=== PATIENT | male | born 1970 | race Caucasian/White ===

== ENCOUNTER 2024-10-17 05:19 | Emergency (ER) | payer MEDICAID, SELFPAY ==
[2024-10-17 05:21] VITALS: BP 137/81; PULSE 68; RESP 17; TEMP 37.1; O2SAT 100
--- NOTE | 2024-10-17 05:35 | PC.NURSE ---
Pt on EMS stretcher in ambulance bay [facility] when pt began to sieze - MD notified, pt quickly moved to room 19 and care assumed.
[2024-10-17] MEDS: LORazepam 2 MG/ML VIAL IVP (05:38)
--- NOTE | 2024-10-17 05:38 | PD.EDRME ---
Rapid Medical Screening Exam [facility] Arrival date/time: 10/17/24 05:19 Vital signs: Vital Signs Temperature 98.7 F 10/17/24 05:21 Pulse Rate 68 10/17/24 05:21 Respiratory Rate 17 10/17/24 05:21 Blood Pressure 137/81 H 10/17/24 05:21 Pulse Oximetry (%) 100 10/17/24 05:21 Oxygen Delivery Method Room Air 10/17/24 05:21 [facility] Narrative: 54yo male BIBA from home presents to the ED for a chief complaint of a seizure. Per EMS, patient's woke up to the patient seizing. EMS denies any vomiting. Patient began seizing here in the ED, was placed in a room, and was seen by me. EMS denies any history of seizures. EMS denies any recent illnesses at home. No known allergies.
[2024-10-17 05:40] VITALS: PULSE 82; O2SAT 99
[2024-10-17 05:44] VITALS: BMI 30.4
--- NOTE | 2024-10-17 05:52 | PC.NURSE ---
Padding placed against both side rails of bed for seizure precautions. Suction set up and turned on.
[2024-10-17 05:55] VITALS: BP 129/76; PULSE 71; RESP 23; O2SAT 97
[2024-10-17 06:02] LABS: Lactate (Lactic Acid) 13.1 mMol/L (0.4-2.0)
[2024-10-17 06:03] LABS: Basophils % (Auto) 0 % (0-2.5); Eosinophils # (Auto) 0.1 Thou/mm3 (0.0-0.5); Eosinophils % (Auto) 1 % (0-10); Hematocrit 44.5 % (41.0-53.0); Hemoglobin 14.9 g/dL (13.5-16.0); Immature Granulocytes % (Auto) 3 % (0-0); Immature Granulocytes Auto 0.22 Thou/mm3 (0.00-0.00); Lymphocytes # (Auto) 4.7 Thou/mm3 (1.0-4.8); Lymphocytes % (Auto) 56 % (10-50); Mean Corpuscular HGB Conc 33.5 g/dl (31.0-37.0); Mean Corpuscular Hemoglobin 29.9 pg (25.0-35.0); Mean Corpuscular Volume 89 fL (80-100); Monocytes # (Auto) 0.9 Thou/mm3 (0.0-0.8); Monocytes % (Auto) 11 % (0-12); Neutrophils # (Auto) 2.4 Thou/mm3 (1.8-7.7); Neutrophils % (Auto) 29 % (37-80); Nucleated Red Blood Cell % 0 /100 WBC (0); Platelet Count 315 Thou/mm3 (140-440); RDW Standard Deviation 44.4 fL (35.1-43.9); Red Blood Count 4.98 Miln/mm3 (4.50-5.90); White Blood Count 8.4 Thou/mm3 (3.8-10.6)
--- NOTE | 2024-10-17 06:03 | PD.EDSEIZ ---
ED Seizures RME/HPI General Chief Complaint: Seizure Stated Complaint: SEIZURE Time Seen by Provider: 10/17/24 06:01 Arrival date/time: 10/17/24 05:19 Limitations: no limitations RME / HPI RME / HPI Narrative: 54yo male VINCENT from home presents to the ED for a chief complaint of a seizure. Per EMS, patient's woke up to the patient seizing. EMS denies any vomiting. Patient began seizing here in the ED, was placed in a room, and was seen by me. EMS denies any history of seizures. EMS denies any recent illnesses at home. No known allergies. Obtained additional history from the . States she witnessed the seizure which she described as full body, lasting 3-4 minutes. States during that time patient bit his tongue. Shortly after waking patient was confused. denies any history of seizures. Related Data Previous Rx's ?Medication ?Instructions ?Recorded levetiracetam 1,000 mg tablet 1,000 mg PO BID #60 tabs 10/17/24 (Keppra) Allergies Allergy/AdvReac Type Severity Reaction Status Date / Time NKA* Allergy Uncoded 07/05/17 11:28 Review of Systems Review of Systems Systems Reviewed: All systems reviewed, normal except as documented Past Medical History Past Medical History CARDIAC: Negative Congestive Heart Failure RESPIRATORY: Negative Chronic Obstructive Pulmonary Disease (COPD) GENITOURINARY: Negative Renal Disease ENDOCRINE: Negative Diabetes Mellitus Type 1 or Diabetes Mellitus Type 2 Social History SMOKING STATUS: Unknown if ever smoked ED Exam General Limitations: Present no limitations General appearance: Present alert and in no apparent distress Head Head exam: Present atraumatic, normocephalic and normal inspection Eye Eye exam: Present normal appearance, PERRL and EOMI ENT ENT exam: Present normal oropharynx and mucous membranes moist Neck Neck exam: Present normal inspection, full ROM and trachea midline Chest Chest inspection: Present normal inspection and symmetric chest wall rise Respiratory Respiratory exam: Present normal lung sounds bilaterally Cardiovascular Cardiovascular exam: Present regular rate, normal rhythm and normal heart sounds Abdominal Exam Abdominal exam: Present soft and normal bowel sounds Extremities Exam Extremities exam: Present normal inspection and full ROM Back Exam Back exam: Present normal inspection and full ROM Neurological Exam Neurological exam: Present alert, oriented X3 and CN II-XII intact Psychiatric Psychiatric exam: Present normal affect and normal mood Skin Skin exam: Present warm, dry, intact and normal color Course Quality Measures none Orders Category Date Time Status EKG (ED ONLY) *Do not use* NOW Care 10/17/24 05:42 Completed In and Out Catheter X1 Care 10/17/24 05:46 Completed Insert IV NOW Care 10/17/24 05:[address] head/brain wo con Stat Exams 10/17/24 07:05 Completed EKG (ED Only) Stat Exams 10/17/24 05:42 Ordered Blood Culture (Lab) Stat Lab 10/17/24 06:12 Received CBC Stat Lab 10/17/24 05:40 Completed CMP [Comprehensive Metabolic Panel] Stat Lab 10/17/24 05:40 Completed Drug Screen,Urine Stat Lab 10/17/24 05:50 Completed Lactate (Lactic Acid) Stat Lab 10/17/24 05:40 Completed Lactic Acid, 3 HR Stat Lab 10/17/24 08:51 Ordered Procalcitonin Stat Lab 10/17/24 05:40 Completed UA [Urinalysis] Stat Lab 10/17/24 05:50 Completed LORazepam [Ativan Inj] Med 10/17/24 05:32 Discontinued 2 mg .ROUTE .STK-MED ONE LORazepam [Ativan Inj] Med 10/17/24 05:35 Discontinued 2 mg IVP X1 ONE levETIRAcetam INJ [Keppra Inj] Med 10/17/24 08:25 Discontinued 1,000 mg IVP X1 ONE Vital Signs Vital signs: Vital Signs Temperature 98.7 F 10/17/24 05:21 Pulse Rate 68 10/17/24 05:21 Respiratory Rate 17 10/17/24 05:21 Blood Pressure 137/81 H 10/17/24 05:21 Pulse Oximetry (%) 100 10/17/24 05:21 Oxygen Delivery Method Room Air 10/17/24 05:21 Pulse ox is 100% on room air which is adequate. Seizure MDM Narrative MDM Narrative:: ISherrie am scribing for and in the presence of Dr. Christensen. A DMV report was filled and patient was made aware he should not drive until cleared by a neurologist. Patient data External records reviewed:: EMS form Clinical information provided by:: patient, EMS and spouse (- adds to hpi) Social determinants that could affect healthcare access:: none Patient has the following chronic illnesses:: None reported How is presenting disease/condition affected by chronic disease/condition?: no chronic disease Evaluation data The following diagnostics were reviewed and interpreted by me:: lab results (Lactic acid level elevation is metabolic secondary to seizure, otherwise labs are unremarkable. ) and radiology exam(s) Lab and/or radiology exams considered but not ordered:: None Interpretation Summary: Ordering Physician: Jimmy Christensen MD Date of Service: 10/17/24 Procedure(s): CT head/brain wo con Accession Number(s): [id number] cc: Jimmy Christensen MD; Sage Mathis MD; NO PRIMARY/FAMILY,PHYSICIAN~ Examination: CT brain head without contrast. 2-D sagittal coronal reconstructions Date and time of exam:October 17, 2024 0716 hrs. Indications: New onset seizures this morning CTDI: vol (mGy):56.1 DLP: (mGycm):1131 Technique: Multiple CT axial sections of the brain have been obtained, 5 mm slice thickness. Contrast has not been administered. 2-D sagittal, coronal reconstructions have been obtained Low dose protocols were performed. One or more of the following dose reduction techniques were used; automated exposure control, adjustment of the mA and/or KV according to patient size, use of iterative reconstruction technique. Findings: No significant ventricular enlargement. Intra-axial or extra-axial hemorrhage density is not seen. No mass effect or midline shift Basal cisterns are not remarkable. Fourth ventricle is midline. Cranial vault intact. Impression: Negative for acute hemorrhage, mass effect or midline shift Consider brain MRI follow-up, pre and postcontrast, seizure protocol Dictated By: Sage Mathis MD Signed By: <Electronically signed by Sage Mathis MD in OV> 10/17/24 0753 Medications / Prescriptions Medications or Prescriptions considered but not ordered:: None Medication administrations:: Medication Administration History Discontinued Medications Levetiracetam (Levetiracetam Inj 100 Mg/Ml Vial 5ml) 1,000 mg IVP X1 ONE Stop: 10/17/24 08:26 Lorazepam (Lorazepam 2 Mg/Ml Vial) Confirm Administered Dose 2 mg .ROUTE .STK-MED ONE Stop: 10/17/24 05:33 Last Admin: 10/17/24 05:43 Dose: Not Given Documented By: DB Non-Admin Reason: Duplicate Medication on eMAR Lorazepam (Lorazepam 2 Mg/Ml Vial) 2 mg IVP X1 ONE Stop: 10/17/24 05:36 Last Admin: 10/17/24 05:38 Dose: 2 mg Documented By: DB See above Consultations Consultation(s) initiated? (list below): No Diagnosis Seizure Differential Diagnosis: febrile convulsion, generalized seizure, new onset seizure and epileptic seizure Most likely diagnosis given after review of the tests above:: Seizure Admission Indicated Admission indicated?: not indicated Admission Request Was there a request for admission?: No Disposition Plan Disposition Plan: Discharge Discharge Attestation Discharge Attestation: The patient and all family members were given an opportunity to ask questions and understood the discharge instructions. Discharge instructions specifically effects, indications for sooner follow up or return to the emergency department, and the expected course of current diagnosis. Patient condition: Stable Discharge Plan Plan Patient Disposition: HOME (Self Care) Patient condition on transfer: Stable Prescriptions/Referrals Prescriptions/Med Rec: New levetiracetam [Keppra] 1,000 mg tablet 1,000 mg PO BID Qty: 60 0RF Referrals: No Primary/Family,Physician [Primary Care Provider] - In 1 week Problem List Clinical Impression: Seizure Patient/Caregiver Discharge Instructions Print Language: Montserratian Stand Alone Forms: [employer] Award Info., Patient Portal Info Letter
[2024-10-17 06:12] LABS: Collection Type, Urine Catheter; Squamous Epithelial Cell,Urine 0 /hpf (0-5)
[2024-10-17 06:15] LABS: Bilirubin,Urine Negative (Negative); Blood,Urine Negative (Negative); Clarity,Urine Clear (Clear/Hazy); Color,Urine Lt-Yellow (Lt Yel-Yel); Glucose, Urine Negative (Negative); Ketones,Urine Negative (Negative); Leukocyte Esterase,Urine Negative (Negative); Nitrite,Urine Negative (Negative); Protein,Urine Negative (Neg - Trace); RBC,Urine < 1 /hpf (0-3); Specific Gravity,Urine 1.013 (1.001-1.035); Urobilinogen,Urine Negative mg/dL (0.0-1.0); WBC,Urine < 1 /hpf (0-5)
--- NOTE | 2024-10-17 06:25 | PC.NURSE ---
Pt's at the bedside at this time; update on plan of care given.
[2024-10-17 06:40] LABS: Fentanyl Screen,Urine Negative (Negative)
[2024-10-17 06:44] LABS: Amphetamine/Methamp Scrn,U Negative (Negative); Barbiturate Screen,Urine Negative (Negative); Benzodiazepines Screen,Urine Negative (Negative); Benzoylecgonine Screen, Ur Negative (Negative); Opiate Screen,Urine Negative (Negative); THC Screen,Urine Negative (Negative)
[2024-10-17 06:44] LABS: Alanine Aminotransferase 35 U/L (10-49); Albumin, Serum 4.5 gm/dL (3.5-5.0); Alkaline Phosphatase 101 U/L (46-116); Anion Gap 17 (7-16); Aspartate Amino Transferase 35 U/L (0-34); BUN/Creatinine Ratio 19 Ratio (12-20); Bilirubin,Total 0.5 mg/dL (0.3-1.2); Blood Urea Nitrogen 15 mg/dL (9-23); Calcium 10.3 mg/dL (8.3-10.6); Calcium (Corrected) 10.3 mg/dL (8.5-10.1); Carbon Dioxide 17.5 mMol/L (20.0-31.0); Chloride 109 mMol/L (98-107); Creatinine (Component) 0.8 mg/dL (0.6-1.3); Estimated Creatinine Clearance 115.5 mL/min (>60); Globulin 2.3 gm/dL (2.3-3.5); Glucose 157 mg/dL (74-106); Osmolality,Calculated 288 (275-295); Potassium 4.4 mMol/L (3.4-5.1); Procalcitonin 0.06 ng/ml (0.0-0.49); Sodium 143 mMol/L (136-145); Total Protein 6.8 gm/dL (5.7-8.2); eGFR > 60 See Note
[2024-10-17 06:46] VITALS: BP 108/77; PULSE 74; RESP 19; O2SAT 97
--- NOTE | 2024-10-17 07:05 | XR_ITS ---
Examination: CT brain head without contrast. 2-D sagittal coronal reconstructions Date and time of exam:October 17, 2024 0716 hrs. Indications: New onset seizures this morning CTDI: vol (mGy):56.1 DLP: (mGycm):1131 Technique: Multiple CT axial sections of the brain have been obtained, 5 mm slice thickness. Contrast has not been administered. 2-D sagittal, coronal reconstructions have been obtained Low dose protocols were performed. One or more of the following dose reduction techniques were used; automated exposure control, adjustment of the mA and/or KV according to patient size, use of iterative reconstruction technique. Findings: No significant ventricular enlargement. Intra-axial or extra-axial hemorrhage density is not seen. No mass effect or midline shift Basal cisterns are not remarkable. Fourth ventricle is midline. Cranial vault intact. Impression: Negative for acute hemorrhage, mass effect or midline shift Consider brain MRI follow-up, pre and postcontrast, seizure protocol
[2024-10-17 07:48] VITALS: BP 107/61; PULSE 67; RESP 19; TEMP 36.6; O2SAT 100
[2024-10-17 08:26] VITALS: BP 116/72; PULSE 69; RESP 16; TEMP 37; O2SAT 98
[2024-10-17 08:51] LABS: Reflex Lactate? Y
== END 2024-10-17 08:26 | disposition home or self-care (01) ==
PROVIDERS: Emergency Medicine; Emergency Provider Emergency Medicine
DX: R56.9 Unspecified convulsions (principal)
CPT/HCPCS: 51701; 36415; 70450; 80053; 80307; 81001; 83605; 84145; 85025; 87040; 93005; 96374; 99284; J2060

== ENCOUNTER 2024-11-30 09:18 | Emergency (ER) | payer MEDICAID, SELFPAY ==
[2024-11-30 09:26] VITALS: BP 128/86; PULSE 74; PULSE 77; RESP 18; TEMP 36.5; O2SAT 97
[2024-11-30 09:32] VITALS: BMI 27.3
--- NOTE | 2024-11-30 09:48 | PC.NURSE ---
Pt have a 1 min [place] Seizures, Dr. Queen at bedside, new orders given to this nurse
--- NOTE | 2024-11-30 09:49 | PD.EDSEIZ ---
ED Seizures RME/HPI General Chief Complaint: Seizure Stated Complaint: seizure Time Seen by Provider: 11/30/24 09:56 Arrival date/time: 11/30/24 09:18 RME / HPI RME / HPI Narrative: DR. MOREL MAIN ED EVALUATION: 54 year old male with past medical history significant for seizure in past, alcoholism, presents to the Emergency Department [facility] with complaint of seizure prior to arrival. Symptoms are moderate. Patient did bite his tongue. Related Data Previous Rx's ?Medication ?Instructions ?Recorded levetiracetam 1,000 mg tablet 1,000 mg PO BID #60 tabs 10/17/24 (Keppra) Allergies Allergy/AdvReac Type Severity Reaction Status Date / Time No Known Allergies Allergy Verified 11/30/24 10:43 Review of Systems Review of Systems ROS Unobtainable: unobtainable due to mental status (postictal) Past Medical History Past Medical History CARDIAC: Negative Congestive Heart Failure RESPIRATORY: Negative Chronic Obstructive Pulmonary Disease (COPD) GENITOURINARY: Negative Renal Disease ENDOCRINE: Negative Diabetes Mellitus Type 1 or Diabetes Mellitus Type 2 Social History SMOKING STATUS: Unknown if ever smoked ED Exam Narrative Physical exam: GENERAL APPEARANCE: Well hydrated, well nourished. Earlier, at arrival, patient was actively seizing and there was blood in the mouth after biting his tongue. After Ativan, patient stopped seizing and now sleeping and snoring. No history obtainable from the patient at this time, patient is postictal. VITALS: All vitals were reviewed and the pulse ox is 97% on room air which is normal according to my interpretation. HEENT: Normocephalic, atramatic, EOMI, EACs are patent. There is no bulge or retraction. Throat without erythema or exudate. Moist oromucosa. No jaundice NECK: Supple, no JVD or bruits. CARDIOVASCULAR: Heart regular without S3-S4 or murmur. No rubs or gallops. LUNGS/CHEST: Clear to auscultation bilaterally. No rales, rhonchi, or wheezing. Normal inspection. ABDOMEN: Soft, nontender, with normal bowel sounds. No pulsatile masses. No rebound, rigidity, or guarding. No incarcerated hernia. Normal inspection and palpation. EXTREMITIES: No edema, clubbing, or cyanosis. Intact CSM. Normal inspection and palpation. SKIN: Warm and dry without rashes. Normal inspection. MUSCULOSKELETAL: No gross deformity. Normal inspection. NEURO: Unobtainable, postictal. PSYCHIATRIC: Unobtainable Course Quality Measures none Orders Category Date Time Status Insert IV NOW Care 11/30/24 09:[address] head/brain wo con Stat Exams 11/30/24 13:42 Completed Alcohol, Blood Medical Stat Lab 11/30/24 10:05 Completed BMP [Basic Metabolic Panel] Stat Lab 11/30/24 13:47 Completed CBC Stat Lab 11/30/24 10:05 Completed Comprehensive Metabolic Panel Stat Lab 11/30/24 10:05 Completed Drug Screen,Urine Stat Lab 11/30/24 12:54 Completed LORazepam [Ativan Inj] Med 11/30/24 09:43 Discontinued 2 mg .ROUTE .STK-MED ONE LORazepam [Ativan Inj] Med 11/30/24 09:49 Discontinued 2 mg IVP X1 ONE Multivitamin Inj [Infuvite Inj] 10 ml Med 11/30/24 10:45 Discontinued Magnesium Sulf 50% Inj (gm) 1 gm Folic Acid Inj 1 mg Thiamine Inj [Vitamin B-1 Inj] 100 mg Sodium Chloride 0.9% 1000 ml [Ns] 1,000 ml IV X1 levETIRAcetam INJ [Keppra Inj] Med 11/30/24 09:49 Discontinued 1,000 mg IVP X1 ONE Vital Signs Vital signs: Vital Signs Temperature 97.7 F 11/30/24 09:26 Pulse Rate 77 11/30/24 09:26 Respiratory Rate 18 11/30/24 09:26 Blood Pressure 128/86 H 11/30/24 09:26 Pulse Oximetry (%) 97 11/30/24 09:26 Oxygen Delivery Method Room Air 11/30/24 09:26 Seizure MDM Narrative MDM Narrative:: I, Adina Jarrell, am scribing for and in the presence of Dr. Morel. CBC is negative. CMP noticeable for a bicarb of 13. This is shortly after patient arrival and when he was having the seizure. U tox is negative. Alcohol is negative. In the emergency department the patient was given 1 g of Keppra IV. He was also given IV fluid bolus. He was also giving a liter of banana bag. Repeated BMP is perfectly normal. CT brain was reviewed by and interpreted by me: No bleed. No mass. No shift. No swelling. Normal ventricle. Normal bones. 2:50 PM, the patient is alert awake oriented x 4 GCS of 15. His family members are here to pick him up. The patient is eager to walk out. Critical care time is approximately 35 minutes excluding any procedure. The high probability of sudden, clinically significant deterioration in the patient?s condition required the highest level of my preparedness to intervene urgently. The services I provided to this patient were to treat and/or prevent clinically significant deterioration. Services included the following: chart data review, reviewing nursing notes and/or old charts, documentation time, sr. consultant collaboration regarding findings and treatment options, medication orders and management, direct patient care, vital sign assessments and ordering, interpreting and reviewing diagnostic studies and lab tests. Aggregate critical care time includes only time during which I was engaged in work directly related to the patient?s care, as described above, whether at bedside or elsewhere in the Emergency Department. It did not include time spent performing other reported procedures or the services of residents, students, nurses or physician assistants. Patient data External records reviewed:: [facility] previous records (Reviewed last ED visit dated 10/17/24, discharged with the following: Seizure.) and EMS form Clinical information provided by:: EMS Social determinants that could affect healthcare access:: none Patient has the following chronic illnesses:: Seizures How is presenting disease/condition affected by chronic disease/condition?: caused by Evaluation data The following diagnostics were reviewed and interpreted by me:: lab results and radiology exam(s) Lab and/or radiology exams considered but not ordered:: none Interpretation Summary: See above under MDM narrative. RADIOLOGY Procedure(s): CT head/brain wo con Accession Number(s): [id number] cc: Sage Mathis MD; Mauro Morel MD; Rosalba Cagle PA-C~ Examination: CT brain head without contrast. 2-D sagittal coronal reconstructions Date and time of exam:November 30, 2024 1414 hrs. Indications: Seizures today CTDI: vol (mGy):61.6 DLP: (mGycm):1336 Technique: Multiple CT axial sections of the brain have been obtained, 5 mm slice thickness. Contrast has not been administered. 2-D sagittal, coronal reconstructions have been obtained Low dose protocols were performed. One or more of the following dose reduction techniques were used; automated exposure control, adjustment of the mA and/or KV according to patient size, use of iterative reconstruction technique. Findings: No significant ventricular enlargement. Intra-axial or extra-axial hemorrhage density is not seen. No mass effect or midline shift Basal cisterns are not remarkable. Fourth ventricle is midline. Cranial vault intact. Impression: Negative for acute hemorrhage, mass effect or midline shift Advise clinical correlation and follow-up accordingly Dictated By: Sage Mathis MD Medications / Prescriptions Medications or Prescriptions considered but not ordered:: none Medication administrations:: Medication Administration History Discontinued Medications Multivitamins/Minerals 10 ml/Magnesium Sulfate 1 gm/ Folic Acid 1 mg/ Thiamine HCl 100 mg / Sodium Chloride 1,013.2 mls @ 999 mls/hr IV X1 ONE Stop: 11/30/24 11:45 Last Infusion: 11/30/24 12:30 Dose: Infused Documented By: Admin: 11/30/24 11:08 Dose: 999 mls/hr Documented By: AKI Levetiracetam (Levetiracetam Inj 100 Mg/Ml Vial 5ml) 1,000 mg IVP X1 ONE Stop: 11/30/24 09:50 Last Admin: 11/30/24 09:54 Dose: 1,000 mg Documented By: AKI Lorazepam (Lorazepam 2 Mg/Ml Vial) Confirm Administered Dose 2 mg .ROUTE .STK-MED ONE Stop: 11/30/24 09:44 Last Admin: 11/30/24 09:50 Dose: Not Given Documented By: AKI Non-Admin Reason: Duplicate Medication on eMAR Lorazepam (Lorazepam 2 Mg/Ml Vial) 2 mg IVP X1 ONE Stop: 11/30/24 09:50 Last Admin: 11/30/24 09:50 Dose: 2 mg Documented By: AKI see above Consultations Consultation(s) initiated? (list below): No Diagnosis Seizure Differential Diagnosis: generalized seizure, epileptic seizure and other (Alcohol-related seizure) Most likely diagnosis given after review of the tests above:: Recurrent seizure Admission Indicated Admission indicated?: not indicated Admission Request Was there a request for admission?: No Disposition Plan Disposition Plan: Discharge Discharge Attestation Discharge Attestation: The patient and all family members were given an opportunity to ask questions and understood the discharge instructions. Discharge instructions specifically effects, indications for sooner follow up or return to the emergency department, and the expected course of current diagnosis. Patient condition: Stable Discharge Plan Plan Patient Disposition: HOME (Self Care) Disposition Comment: Stable to go home Prescriptions/Referrals Prescriptions/Med Rec: No Action levetiracetam [Keppra] 1,000 mg tablet 1,000 mg PO BID Qty: 60 0RF Referrals: Rosalba Cagle PA-C [Primary Care Provider] - In 1 week Problem List Clinical Impression: Generalized seizure Patient/Caregiver Discharge Instructions Education Materials: ED Seizure, Recurrent (Adult) Additional Instructions: Continue your seizure medication. Caution do not drive. Do not dive. Do not do angela. Follow-up with your medical doctor in 3 days. Return the emergency department if any problem. Print Language: Lithuanian Stand Alone Forms: [employer] Award Info., Patient Portal Info Letter
[2024-11-30] MEDS: LORazepam 2 MG/ML VIAL IVP (09:50)
[2024-11-30] MEDS: levETIRAcetam INJ 100 MG/ML VIAL 5ML 1000 MG IVP (09:54)
[2024-11-30 10:11] VITALS: BP 123/80; PULSE 85; RESP 20; TEMP 35.7; O2SAT 99
[2024-11-30 10:13] LABS: Basophils % (Auto) 0 % (0-2.5); Eosinophils # (Auto) 0.1 Thou/mm3 (0.0-0.5); Eosinophils % (Auto) 1 % (0-10); Hematocrit 45.4 % (41.0-53.0); Hemoglobin 14.9 g/dL (13.5-16.0); Immature Granulocytes % (Auto) 0 % (0-0); Immature Granulocytes Auto 0.03 Thou/mm3 (0.00-0.00); Lymphocytes # (Auto) 3.2 Thou/mm3 (1.0-4.8); Lymphocytes % (Auto) 46 % (10-50); Mean Corpuscular HGB Conc 32.8 g/dl (31.0-37.0); Mean Corpuscular Hemoglobin 29.3 pg (25.0-35.0); Mean Corpuscular Volume 89 fL (80-100); Monocytes # (Auto) 0.6 Thou/mm3 (0.0-0.8); Monocytes % (Auto) 8 % (0-12); Neutrophils # (Auto) 3.1 Thou/mm3 (1.8-7.7); Neutrophils % (Auto) 44 % (37-80); Nucleated Red Blood Cell % 0 /100 WBC (0); Platelet Count 260 Thou/mm3 (140-440); RDW Standard Deviation 43.9 fL (35.1-43.9); Red Blood Count 5.08 Miln/mm3 (4.50-5.90)
[2024-11-30 10:33] LABS: Alanine Aminotransferase 30 U/L (10-49); Albumin, Serum 4.7 gm/dL (3.5-5.0); Albumin/Globulin Ratio 1.9 (1.2-2.2); Alcohol, Blood Medical < 3.0 mg/dL (0-10.0); Alkaline Phosphatase 110 U/L (46-116); Anion Gap 24 (7-16); Aspartate Amino Transferase 32 U/L (0-34); BUN/Creatinine Ratio 12 Ratio (12-20); Bilirubin,Total 0.6 mg/dL (0.3-1.2); Blood Urea Nitrogen 11 mg/dL (9-23); Calcium 9.6 mg/dL (8.3-10.6); Calcium (Corrected) 9.6 mg/dL (8.5-10.1); Chloride 104 mMol/L (98-107); Creatinine (Component) 0.9 mg/dL (0.6-1.3); Estimated Creatinine Clearance 90.8 mL/min (>60); Globulin 2.5 gm/dL (2.3-3.5); Glucose 138 mg/dL (74-106); Osmolality,Calculated 282 (275-295); Potassium 3.4 mMol/L (3.4-5.1); Sodium 141 mMol/L (136-145); Total Protein 7.2 gm/dL (5.7-8.2); eGFR > 60 See Note
[2024-11-30 10:34] LABS: Carbon Dioxide 12.9 mMol/L (20.0-31.0)
[2024-11-30] MEDS: MULTIVITAMIN IV (11:08)
[2024-11-30] MEDS: MAGNESIUM SULF IV (11:08)
[2024-11-30] MEDS: FOLIC ACID IV (11:08)
[2024-11-30] MEDS: [UNRECOGNIZED DRUG - OTHER] IV (11:08)
[2024-11-30 12:00] VITALS: BP 130/81; PULSE 63; RESP 18; TEMP 36; O2SAT 100
[2024-11-30 13:11] LABS: Amphetamine/Methamp Scrn,U Negative (Negative); Barbiturate Screen,Urine Negative (Negative); Benzodiazepines Screen,Urine Negative (Negative); Benzoylecgonine Screen, Ur Negative (Negative); Fentanyl Screen,Urine Negative (Negative); Opiate Screen,Urine Negative (Negative); THC Screen,Urine Negative (Negative)
--- NOTE | 2024-11-30 13:42 | XR_ITS ---
Examination: CT brain head without contrast. 2-D sagittal coronal reconstructions Date and time of exam:November 30, 2024 1414 hrs. Indications: Seizures today CTDI: vol (mGy):61.6 DLP: (mGycm):1336 Technique: Multiple CT axial sections of the brain have been obtained, 5 mm slice thickness. Contrast has not been administered. 2-D sagittal, coronal reconstructions have been obtained Low dose protocols were performed. One or more of the following dose reduction techniques were used; automated exposure control, adjustment of the mA and/or KV according to patient size, use of iterative reconstruction technique. Findings: No significant ventricular enlargement. Intra-axial or extra-axial hemorrhage density is not seen. No mass effect or midline shift Basal cisterns are not remarkable. Fourth ventricle is midline. Cranial vault intact. Impression: Negative for acute hemorrhage, mass effect or midline shift Advise clinical correlation and follow-up accordingly
[2024-11-30 14:00] VITALS: BP 131/83; PULSE 76; RESP 17; TEMP 36.6; O2SAT 98
--- NOTE | 2024-11-30 14:09 | PC.NURSE ---
PT TO CT
[2024-11-30 14:21] LABS: Anion Gap 8 (7-16); BUN/Creatinine Ratio 17 Ratio (12-20); Blood Urea Nitrogen 10 mg/dL (9-23); Calcium 9.1 mg/dL (8.3-10.6); Chloride 106 mMol/L (98-107); Creatinine (Component) 0.6 mg/dL (0.6-1.3); Estimated Creatinine Clearance 136.2 mL/min (>60); Glucose 101 mg/dL (74-106); Osmolality,Calculated 278 (275-295); Potassium 4.4 mMol/L (3.4-5.1); Sodium 140 mMol/L (136-145); eGFR > 60 See Note
[2024-11-30 15:45] VITALS: BP 117/74; PULSE 88; RESP 16; TEMP 36.7; O2SAT 99
== END 2024-11-30 15:45 | disposition home or self-care (01) ==
PROVIDERS: Emergency Provider Emergency Medicine; PCP Physician Assistant
DX: R56.9 Unspecified convulsions (principal)
CPT/HCPCS: 36415; 70450; 80048; 80053; 80307; 80320; 85025; 96365; 96375; 99291; J1953; J2060; J3411; J3475; J3490; J7030; G0480

== ENCOUNTER → 2024-12-23 | Outpatient (CLI) | payer MEDICAID, SELFPAY ==
--- NOTE | 2024-12-23 13:55 | XR_ITS ---
Examination: Bone densitometry Date and time of exam:December 23, 2024 1424 hours INDICATIONS: 54-year-old male with diagnosis age related osteoporosis Technique: Lumbar spine and hip total bone mineralization values of an calculated. Peak reference and age match control results have been displayed. Findings: Lumbar spine total bone mineralization is0.761 gm/cm2. This is 3.0 standard deviations below peak reference. This is 2.5 standard deviations below age-matched controls. Hip total bone mineralization is 0.890 gm/cm2 This is 1.3 standard deviations below peak reference. This is 1.0 standard deviations above age-matched controls Impression: There is osteoporosis based on lumbar spine measurements. There is osteopenia based on hip measurements
== END | disposition home or self-care (01) ==
PROVIDERS: PCP Physician Assistant; Referring Provider Physician Assistant; Visit Provider Physician Assistant
DX: M81.0 Age-related osteoporosis without current pathological fracture (principal); M85.88 Other specified disorders of bone density and structure, other site
CPT/HCPCS: 77080

== ENCOUNTER → 2025-02-02 | Outpatient (CLI) | payer MEDICAID, SELFPAY ==
--- NOTE | 2025-02-02 15:30 | XR_ITS ---
Examination: CT abdomen with intravenous contrast. Coronal 2-D reconstructions. Sagittal 2-D reconstructions. Date and time of exam:February 02, 2025 1640 hrs. Indications: Diagnosis of adrenocortical overactivity elevated cortisol CTDI: vol (mGy): 6.16 DLP: (mGycm): 169 Technique: Axial images of the abdomen have been obtained, 3 mm slice thickness, 60 cc [id number] 2-D sagittal coronal reconstructions Low dose protocols were performed. One or more of the following dose reduction techniques were used; automated exposure control, adjustment of the mA and/or KV according to patient size, use of iterative reconstruction technique. Findings: No focal liver or splenic lesions No gallstones No pancreatic mass Normal adrenal glands No renal or ureteral calculi Aorta normal size No abdominal lymphadenopathy Impression: Normal adrenal glands No focal liver or splenic lesion No abdominal lymphadenopathy
== END | disposition home or self-care (01) ==
LOC: CCTX 15:24
PROVIDERS: Referring Provider Physician Assistant; Visit Provider Physician Assistant
DX: E27.0 Other adrenocortical overactivity (principal)
CPT/HCPCS: 74160; A4649; Q9967

== ENCOUNTER 2025-05-24 13:37 | Emergency (ER) | payer MEDICAID, SELFPAY ==
[2025-05-24 13:46] VITALS: PULSE 75; O2SAT 99
[2025-05-24 13:48] VITALS: BP 128/77; PULSE 72; RESP 18; TEMP 36.6; O2SAT 98
--- NOTE | 2025-05-24 14:07 | PD.EDSEIZ ---
ED Seizures RME/HPI General Chief Complaint: Seizure Stated Complaint: Seizure Time Seen by Provider: 05/24/25 14:38 Arrival date/time: 05/24/25 13:37 Limitations: no limitations RME / HPI RME / HPI Narrative: 54 year old male with history of seizures twice before (09/2024 and 11/2024) and medication noncompliance presents to the ED via [facility]IB[facility] for evaluation after a seizure today. Per medic, the patient's reported that the patient was sitting on the couch when he began having a seizure, which lasted approximately 1 minute. Described patients entire body was shaking, but he did not fall to the ground. He was assisted down by his . On arrival to the ED, the patient is postictal and unable to provide additional history. Examination revealed dried blood on the patient's lips consistent with a tongue bite. The arrived later and reported that approximately 5 minutes before the seizure, the patient appeared confused and was pacing around their home. After sitting on the couch, he began seizing, which she described as lasting around 1 minute. She mentioned that this is the patient's third seizure. She recalled that he was evaluated in the ED in September 2024 for his first seizure, followed by a second episode in November 2024. The patient was prescribed Keppra after the initial seizure in September 2024 but did not begin taking it until November 2024, and he only used it for about 1.5 months. She stated that the patient's primary care provider discontinued the Keppra, and he is currently only taking vitamin supplements. Related Data Previous Rx's ?Medication ?Instructions ?Recorded levetiracetam 1,000 mg tablet 1,000 mg PO BID #60 tabs 10/17/24 (Keppra) levetiracetam 750 mg tablet 750 mg PO Q12H #60 tabs 05/24/25 (Keppra) Allergies Allergy/AdvReac Type Severity Reaction Status Date / Time No Known Allergies Allergy Verified 11/30/24 10:43 Review of Systems Review of Systems Systems Reviewed: All systems reviewed, normal except as documented Past Medical History Past Medical History NEUROLOGIC: Positive Seizures CARDIAC: Negative Congestive Heart Failure RESPIRATORY: Negative Chronic Obstructive Pulmonary Disease (COPD) GENITOURINARY: Negative Renal Disease ENDOCRINE: Negative Diabetes Mellitus Type 1 or Diabetes Mellitus Type 2 Social History SMOKING STATUS: Unknown if ever smoked ED Exam General Limitations: Present no limitations General appearance: Present alert, in no apparent distress and other (confused ) Head Head exam: Present normocephalic and normal inspection Eye Eye exam: Present normal appearance, PERRL and EOMI ENT ENT exam: Present mucous membranes moist and other (There is dried blood on lips and a tongue bite injury ) Neck Neck exam: Present normal inspection, full ROM and trachea midline Chest Chest inspection: Present normal inspection and symmetric chest wall rise Respiratory Respiratory exam: Present normal lung sounds bilaterally Cardiovascular Cardiovascular exam: Present regular rate, normal rhythm and normal heart sounds Abdominal Exam Abdominal exam: Present soft and normal bowel sounds Extremities Exam Extremities exam: Present normal inspection and full ROM Back Exam Back exam: Present normal inspection and full ROM Neurological Exam Neurological exam: Present alert, CN II-XII intact and other (Oriented to self only, not able to answer any other questions) Psychiatric Psychiatric exam: Present normal affect and normal mood Skin Skin exam: Present warm, dry, intact and normal color Course Quality Measures none Orders Category Date Time Status CXRP [XR chest 1V portable] Stat Exams 05/24/25 14:07 Completed CBC [CBC] Stat Lab 05/24/25 13:59 Completed CK [Creatine Kinase] Stat Lab 05/24/25 13:59 Completed CMP [Comprehensive Metabolic Panel] Stat Lab 05/24/25 13:59 Completed Lactate (Lactic Acid) Stat Lab 05/24/25 13:59 Completed Troponin I Stat Lab 05/24/25 13:59 Completed UA, C/S IF [Urinalysis, C/S if Indicated] Stat Lab 05/24/25 14:48 Completed VBG [Venous Blood Gas] Stat Lab 05/24/25 13:59 Completed Sodium Chloride 0.9% 1000 ml [Ns] 1,000 ml Med 05/24/25 15:22 Discontinued IV 999 mls/hr levETIRAcetam (Ped) [Keppra Inj (Ped)] 1,500 mg Med 05/24/25 14:08 Discontinued Syringe Ns (Carrier) [Carrier Syringe Ns] 1 ea IV X1 levETIRAcetam INJ [Keppra Inj] Med 05/24/25 14:15 Discontinued 1,500 mg IVP X1 ONE Vital Signs Vital signs: Vital Signs Temperature 97.8 F 05/24/25 13:48 Pulse Rate 72 05/24/25 13:48 Respiratory Rate 18 05/24/25 13:48 Blood Pressure 128/77 05/24/25 13:48 Pulse Oximetry (%) 98 05/24/25 13:48 Oxygen Delivery Method Nasal Cannula 05/24/25 13:48 Oxygen Flow Rate 3 05/24/25 13:48 Seizure MDM Narrative MDM Narrative:: Bienvenido Sherrielivier Aden, eunice scribing for and in the presence of Dr. Sheets. Assessment: Seizure with prolonged postictal symptoms, possibly indicating additional seizure activity. Plan: Redose with 1500 mg of Keppra and monitor closely in the ED until mentation improves or postictal symptoms resolve. On reassessment, the patient is awake and answering questions appropriately. at bedside reports patient has returned to baseline although at times still appears confused. Discussed todays results and plan to restart him on Keppra. Patient data External records reviewed:: [facility] previous records (I reviewed ED visit on 11/30/2024 for seizure ) and EMS form Clinical information provided by:: EMS Social determinants that could affect healthcare access:: none Patient has the following chronic illnesses:: Seizures How is presenting disease/condition affected by chronic disease/condition?: exacerbated by Evaluation data The following diagnostics were reviewed and interpreted by me:: lab results and radiology exam(s) Lab and/or radiology exams considered but not ordered:: None Interpretation Summary: Ordering Physician: Graciela Her MD Date of Service: 05/24/25 Procedure(s): XR chest 1V portable Accession Number(s): [id number] cc: Graciela Her MD; Sage Mathis MD~ Examination: AP chest single view Technique one AP portable upright chest single view Date and time: 2024, 1428 hrs. Indications: Altered mental status today. Findings: Minimal prominence cardiac contour. No aspiration pneumonia. No pulmonary edema. Moderate osteopenia Impression: No aspiration pneumonia. Dictated By: Sage Mathis MD Signed By: <Electronically signed by Sage Mathis MD in OV> 05/24/25 5447 Medications / Prescriptions Medications or Prescriptions considered but not ordered:: None Medication administrations:: Medication Administration History Discontinued Medications Levetiracetam 1,500 mg/ Device 150 mls @ 600 mls/hr IV X1 ONE Stop: 05/24/25 14:09 Last Admin: 05/24/25 14:30 Dose: Not Given Documented By: EF Non-Admin Reason: Cancelled by Provider Sodium Chloride (Ns) 1,000 mls @ 999 mls/hr IV .Q1H1M ONE Stop: 05/24/25 16:22 Last Infusion: 05/24/25 16:28 Dose: Infused Documented By: Admin: 05/24/25 15:27 Dose: 999 mls/hr Documented By: EF Levetiracetam (Levetiracetam Inj 100 Mg/Ml Vial 5ml) 1,500 mg IVP X1 ONE Stop: 05/24/25 14:16 Last Admin: 05/24/25 14:24 Dose: 1,500 mg Documented By: EF See above Consultations Consultation(s) initiated? (list below): No Diagnosis Seizure Differential Diagnosis: intractable seizure disorder, focal seizure, generalized seizure, epileptic seizure and status epilepticus Most likely diagnosis given after review of the tests above:: Epileptic seizure Admission Indicated Admission indicated?: not indicated Admission Request Was there a request for admission?: No Disposition Plan Disposition Plan: Discharge Discharge Attestation Discharge Attestation: The patient and all family members were given an opportunity to ask questions and understood the discharge instructions. Discharge instructions specifically effects, indications for sooner follow up or return to the emergency department, and the expected course of current diagnosis. Patient condition: Stable Discharge Plan Plan Patient Disposition: HOME (Self Care) Prescriptions/Referrals Prescriptions/Med Rec: New levetiracetam [Keppra] 750 mg tablet 750 mg PO Q12H Qty: 60 0RF No Action levetiracetam [Keppra] 1,000 mg tablet 1,000 mg PO BID Qty: 60 0RF Referrals: Rosalba Cagle PA-C [Primary Care Provider] - In 1 week Problem List Clinical Impression: Epileptic seizure Patient/Caregiver Discharge Instructions Discharge Activity: activity as tolerated Education Materials: Diagnosing Epilepsy, Treating Epilepsy: Medicines, Epilepsy: Safety During a Seizure, Discharge Instructions for Epilepsy Additional Instructions: Make sure to take the medication on a regular basis twice a day Make sure to follow-up with your doctor You need to see the neurologist for evaluation and doing electroencephalogram Do not drive until you are cleared by your doctor and you are prohibited from driving until that happens Print Language: Kinyarwanda Stand Alone Forms: [employer] Award Info., Patient Portal Info Letter
[2025-05-24] MEDS: levETIRAcetam INJ 100 MG/ML VIAL 5ML 1500 MG IVP (14:24)
[2025-05-24 14:37] LABS: Base Excess, Venous -7 (-3-3); O2 Saturation, Venous 99 % (96-97); PCO2, Venous 37 mmHg (36-56); PO2, Venous 143 mmHg (15-58); pH, Venous 7.31 (7.33-7.66)
[2025-05-24 14:39] LABS: Basophils % (Auto) 0 % (0-2.5); Eosinophils # (Auto) 0.1 Thou/mm3 (0.0-0.5); Eosinophils % (Auto) 1 % (0-10); Hematocrit 41.9 % (41.0-53.0); Hemoglobin 14.6 g/dL (13.5-16.0); Immature Granulocytes % (Auto) 0 % (0-0); Immature Granulocytes Auto 0.03 Thou/mm3 (0.00-0.00); Lymphocytes # (Auto) 2.6 Thou/mm3 (1.0-4.8); Lymphocytes % (Auto) 33 % (10-50); Mean Corpuscular HGB Conc 34.8 g/dl (31.0-37.0); Mean Corpuscular Hemoglobin 28.9 pg (25.0-35.0); Mean Corpuscular Volume 83 fL (80-100); Monocytes # (Auto) 0.6 Thou/mm3 (0.0-0.8); Monocytes % (Auto) 8 % (0-12); Neutrophils # (Auto) 4.7 Thou/mm3 (1.8-7.7); Neutrophils % (Auto) 59 % (37-80); Nucleated Red Blood Cell % 0 /100 WBC (0); Platelet Count 242 Thou/mm3 (140-440); RDW Standard Deviation 41.3 fL (35.1-43.9); Red Blood Count 5.05 Miln/mm3 (4.50-5.90); White Blood Count 8.1 Thou/mm3 (3.8-10.6)
[2025-05-24 14:42] LABS: Lactate (Lactic Acid) 8.2 mMol/L (0.4-2.0)
[2025-05-24 14:59] LABS: Collection Type, Urine Clean Catch; Squamous Epithelial Cell,Urine 0 /hpf (0-5)
[2025-05-24 15:00] LABS: Alanine Aminotransferase 41 U/L (10-49); Albumin, Serum 4.1 gm/dL (3.5-5.0); Albumin/Globulin Ratio 1.9 (1.2-2.2); Alkaline Phosphatase 93 U/L (46-116); Anion Gap 13 (7-16); Aspartate Amino Transferase 33 U/L (0-34); BUN/Creatinine Ratio 16 Ratio (12-20); Bilirubin,Total 0.6 mg/dL (0.3-1.2); Blood Urea Nitrogen 14 mg/dL (9-23); Calcium 9.1 mg/dL (8.3-10.6); Calcium (Corrected) 9.1 mg/dL (8.5-10.1); Carbon Dioxide 17.6 mMol/L (20.0-31.0); Chloride 105 mMol/L (98-107); Creatine Kinase 104 U/L (34-171); Creatinine (Component) 0.9 mg/dL (0.6-1.3); Globulin 2.2 gm/dL (2.3-3.5); Glucose 122 mg/dL (74-106); Osmolality,Calculated 273 (275-295); Potassium 3.3 mMol/L (3.4-5.1); Sodium 136 mMol/L (136-145); Total Protein 6.3 gm/dL (5.7-8.2); Troponin I < 0.020 ng/mL (0.0-0.045); eGFR > 60 See Note
[2025-05-24] MEDS: SODIUM CHLORIDE 0.9% 1000 ML 1,000 ML 999 ML IV (15:27)
[2025-05-24 15:34] LABS: Bilirubin,Urine Negative (Negative); Blood,Urine Negative (Negative); Color,Urine Lt-Yellow (Lt Yel-Yel); Culture Indicated,Urine Not Indicated; Glucose, Urine Negative (Negative); Ketones,Urine Negative (Negative); Leukocyte Esterase,Urine Negative (Negative); Nitrite,Urine Negative (Negative); Protein,Urine Negative (Neg - Trace); RBC,Urine 1 /hpf (0-3); Specific Gravity,Urine 1.009 (1.001-1.035); Urobilinogen,Urine Negative mg/dL (0.0-1.0); WBC,Urine < 1 /hpf (0-5)
[2025-05-24 15:36] LABS: Clarity,Urine Hazy (Clear/Hazy); Sperm,Urine Present
[2025-05-24 17:29] LABS: Reflex Lactate? Y
== END 2025-05-24 17:51 | disposition home or self-care (01) ==
PROVIDERS: Emergency Provider Emergency Medicine; PCP Physician Assistant
DX: G40.909 Epilepsy, unspecified, not intractable, without status epilepticus (principal); R41.82 Altered mental status, unspecified
CPT/HCPCS: 36415; 71045; 80053; 81001; 82550; 82803; 83605; 84484; 85025; 96361; 96374; 99284; J1953; J7030